=== PATIENT | female | born 1980 | race Caucasian/White ===

== ENCOUNTER 2017-11-27 05:38 | Emergency (ER) | payer BC ==
[~2017-11-27] VITALS: Ht 170.2 cm; Wt 109.1 kg
[2017-11-27] MEDS ORDERED: PROZAC20 M1 PO (06:01)
[2017-11-27] MEDS ORDERED: BIRTH CONTROL (06:02)
[2017-11-27] MEDS ORDERED: LEVONOR-ETH ES1 EACH PO (06:32)
[2017-11-27 08:11] VITALS: BP 135/88
== END 2017-11-27 08:07 | disposition home or self-care (01) ==
LOC: ED 05:38
DX: S93.401A Sprain of unspecified ligament of right ankle, initial encounter (principal); W10.8XXA Fall (on) (from) other stairs and steps, initial encounter; Y92.009 Unspecified place in unspecified non-institutional (private) residence as the place of occurrence of the external cause
CPT/HCPCS: L4396

== ENCOUNTER 2018-01-20 16:00 | Outpatient (RCR) | payer BC ==
[~2018-01-20 16:00] MED LIST: BIRTH CONTROL; LEVONOR-ETH ES1 EACH PO; PROZAC20 M1 PO
== END 2018-01-20 16:30 | disposition home or self-care (01) ==
LOC: PT 16:00
DX: S93.401D Sprain of unspecified ligament of right ankle, subsequent encounter (principal); X50.0XXD Overexertion from strenuous movement or load, subsequent encounter; W10.8XXD Fall (on) (from) other stairs and steps, subsequent encounter

== ENCOUNTER → 2019-01-03 | Outpatient (CLI) | payer BC ==
[2019-01-03 16:28] LABS: EOS # 0.2 (0.04-0.40); EOS % 2.1 % (1.0-5.0); HEMATOCRIT 45.5 % (37.0-47.0); HEMOGLOBIN 14.7 g/dL (12.5-16.0); LYMPH# 3.7 (1.50-4.00); MEAN CELL VOLUME 95 fl (78-100); MEAN CORPUSCULAR HEMOGLOBIN 31 pg (27-31); MEAN CORPUSCULAR HGB CONC 32 g/dL (33-37); MONO # 0.6 (0.20-0.80); NEU # 4.8 (1.40-6.50); PLATELET COUNT 339 K/mm3 (130-400); RED BLOOD COUNT 4.81 M/mm3 (4.10-5.30); RED CELL DISTRIBUTION WIDTH 13.5 % (11.5-14.5); WHITE BLOOD COUNT 9.3 K/mm3 (4.8-10.8)
[2019-01-03 18:27] LABS: ALBUMIN 4.3 g/dL (3.5-5.0); POTASSIUM 4.2 mmol/L (3.5-5.1)
[2019-01-03 18:28] LABS: CALCIUM 10.4 mg/dL (8.3-10.5)
[2019-01-03 18:30] LABS: TOTAL PROTEIN 7.9 g/dL (6.4-8.3)
[2019-01-03 18:32] LABS: TOTAL BILIRUBIN 0.2 mg/dL (0.2-1.2)
== END ==
LOC: LAB 16:01
PROVIDERS: Family Medicine
DX: Z01.419 Encounter for gynecological examination (general) (routine) without abnormal findings (principal); E78.5 Hyperlipidemia, unspecified

== ENCOUNTER → 2020-06-05 | Outpatient (CLI) | payer OTHER ==
[2020-06-05 16:43] LABS: HEMATOCRIT 45.6 % (37.0-47.0); HEMOGLOBIN 14.7 g/dL (12.5-16.0); MEAN PLATELET VOLUME 10.1 fl (7.4-10.4); RED BLOOD COUNT 4.82 M/mm3 (4.10-5.30); RED CELL DISTRIBUTION WIDTH 13.2 % (11.5-14.5); WHITE BLOOD COUNT 11.2 K/mm3 (4.8-10.8)
[2020-06-05 16:58] LABS: ALBUMIN 4.4 g/dL (3.5-5.0); POTASSIUM 3.8 mmol/L (3.5-5.1)
[2020-06-05 16:59] LABS: CALCIUM 9.9 mg/dL (8.3-10.5)
[2020-06-05 17:01] LABS: TOTAL PROTEIN 7.3 g/dL (6.4-8.3)
[2020-06-05 17:02] LABS: TOTAL BILIRUBIN 0.2 mg/dL (0.2-1.2)
== END ==
LOC: LAB 16:04
PROVIDERS: Family Medicine
DX: Z00.00 Encounter for general adult medical examination without abnormal findings (principal); E78.5 Hyperlipidemia, unspecified; R53.83 Other fatigue

== ENCOUNTER → 2020-12-07 | Outpatient (CLI) | payer BC ==
[2020-12-07 09:15] LABS: BASO # 0.01 (0.02-0.10); EOS # 0.21 (0.04-0.40); EOS % 2.4 % (1.0-5.0); HEMATOCRIT 45.3 % (37.0-47.0); HEMOGLOBIN 14.9 g/dL (12.5-16.0); LYMPH# 4.02 (1.50-4.00); MEAN CELL VOLUME 94 fl (78-100); MEAN CORPUSCULAR HEMOGLOBIN 31 pg (27-31); MEAN CORPUSCULAR HGB CONC 33 g/dL (33-37); MEAN PLATELET VOLUME 9.5 fl (7.4-10.4); MONO # 0.56 (0.20-0.80); NEU # 4.01 (1.40-6.50); PLATELET COUNT 310 K/mm3 (130-400); RED BLOOD COUNT 4.83 M/mm3 (4.10-5.30); RED CELL DISTRIBUTION WIDTH 12.3 % (11.5-14.5); WHITE BLOOD COUNT 8.8 K/mm3 (4.8-10.8)
[2020-12-07 09:31] LABS: POTASSIUM 3.8 mmol/L (3.5-5.1)
[2020-12-07 09:32] LABS: ALBUMIN 4.1 g/dL (3.5-5.0)
[2020-12-07 09:33] LABS: CALCIUM 9.4 mg/dL (8.3-10.5)
[2020-12-07 09:34] LABS: TOTAL PROTEIN 7.3 g/dL (6.4-8.3)
[2020-12-07 09:36] LABS: TOTAL BILIRUBIN 0.3 mg/dL (0.2-1.2)
== END ==
LOC: LAB 08:58
PROVIDERS: Family Medicine
DX: Z00.00 Encounter for general adult medical examination without abnormal findings (principal); E78.5 Hyperlipidemia, unspecified